=== PATIENT | male | born 1950 | race African-American/Black ===

== ENCOUNTER 2022-01-29 16:28 | Emergency (ER) | payer MEDICARE, MEDICAID ==
[~2022-01-29] VITALS: Ht 172.7 cm; Wt 100.0 kg
[~2022-01-29 16:28] MED LIST: ALBU17AE26; AMBIEN; AMLO10TA80 PO; ASPI-1406 PO; FLOMAX; HYDR12.518 PO; IBUPROFEN; LISINOPRIL; METO-385 PO; NEURONTIN; NORCO; PROTONIX
[2022-01-29 17:07] VITALS: BP 150/72
== END 2022-01-29 18:13 ==
LOC: ER 16:28
DX: M86.9 Osteomyelitis, unspecified (principal); I10 Essential (primary) hypertension; J44.9 Chronic obstructive pulmonary disease, unspecified; E11.9 Type 2 diabetes mellitus without complications; E78.00 Pure hypercholesterolemia, unspecified; Z79.899 Other long term (current) drug therapy
CPT/HCPCS: 99285

== ENCOUNTER 2022-03-02 19:48 | Emergency (ER) | payer MEDICARE, MEDICAID ==
[~2022-03-02] VITALS: Ht 180.3 cm; Wt 95.0 kg
[2022-03-02] MEDS ORDERED: ACETAMINOPHEN 325MG TABLET PO ONE (20:30)
[2022-03-02] MEDS ORDERED: KETOROLAC 60MG/2ML VIAL IM ONE (20:30)
[2022-03-02] MEDS ORDERED: IBUP-2029 MT (23:18)
[2022-03-02] MEDS ORDERED: ACET-2708 MT (23:18)
[2022-03-03 02:00] VITALS: BP 154/87
== END 2022-03-03 02:29 | disposition home or self-care (01) ==
LOC: ER 19:48
DX: M54.50 Low back pain, unspecified (principal); G82.20 Paraplegia, unspecified; E11.9 Type 2 diabetes mellitus without complications; I10 Essential (primary) hypertension; M19.90 Unspecified osteoarthritis, unspecified site; D64.9 Anemia, unspecified; E78.00 Pure hypercholesterolemia, unspecified; W05.0XXA Fall from non-moving wheelchair, initial encounter; Y93.89 Activity, other specified; Y92.9 Unspecified place or not applicable; Z88.6 Allergy status to analgesic agent; Z88.8 Allergy status to other drugs, medicaments and biological substances; Z93.3 Colostomy status; Z99.3 Dependence on wheelchair; Z79.82 Long term (current) use of aspirin; Z85.46 Personal history of malignant neoplasm of prostate
CPT/HCPCS: 72131; 82962; 96372; 99284; J1885